=== PATIENT | female | born 1980 | race Caucasian/White ===

== ENCOUNTER → 2018-11-16 | Outpatient (CLI) | payer OTHER | LOC: FIMAGING 09:13 | PROVIDERS: ATTEND Obstetrics & Gynecology | DX: O09.521 Supervision of elderly multigravida, first trimester (principal); Z3A.12 12 weeks gestation of pregnancy ==

== ENCOUNTER → 2018-12-31 | Outpatient (CLI) | payer OTHER | LOC: FIMAGING 12:55 | PROVIDERS: ATTEND Obstetrics & Gynecology | DX: O09.522 Supervision of elderly multigravida, second trimester (principal); Z3A.19 19 weeks gestation of pregnancy ==

== ENCOUNTER → 2019-01-28 | Outpatient (CLI) | payer OTHER | LOC: FIMAGING 14:16 | PROVIDERS: ATTEND Obstetrics & Gynecology | DX: O09.522 Supervision of elderly multigravida, second trimester (principal); Z3A.23 23 weeks gestation of pregnancy ==

== ENCOUNTER → 2019-02-09 | Outpatient (CLI) | payer OTHER | LOC: FIMAGING 12:20 | PROVIDERS: ATTEND Obstetrics & Gynecology | DX: O09.522 Supervision of elderly multigravida, second trimester (principal); Z3A.24 24 weeks gestation of pregnancy ==

== ENCOUNTER → 2019-03-22 | Outpatient (CLI) | payer OTHER | LOC: FIMAGING 13:56 | PROVIDERS: ATTEND Obstetrics & Gynecology | DX: O09.523 Supervision of elderly multigravida, third trimester (principal); Z3A.30 30 weeks gestation of pregnancy ==

== ENCOUNTER → 2019-05-04 | Outpatient (CLI) | payer OTHER | LOC: FIMAGING 13:25 ==